=== PATIENT | male | born 1945 | race Caucasian/White ===

== ENCOUNTER → 2016-12-15 | Outpatient (CLI) | payer MEDICARE, BC ==
--- NOTE | 2016-12-15 13:17 | MRI ---
EXAM DESCRIPTION: MRI right knee CLINICAL HISTORY: Right knee pain COMPARISON: None. TECHNIQUE: Multiplanar, multisequence MR images of the right knee FINDINGS: Complex tear posterior horn and body medial meniscus. Complex tear involving both superior and inferior articular surfaces of the posterior horn and body with a primarily horizontal cleavage plane along the mid body extending from the periphery to the free edge. Subluxation of the body with fraying of both superior and inferior articular surfaces Full-thickness chondral loss along both sides of the femorotibial compartment with subchondral marrow edema and prominent joint line osteophytes Blunting and fraying of the free edge lateral meniscus at the posterior horn/body junction and posterior body. Lateral femorotibial chondrosis with chondral thinning and irregularity, grade 2 and grade 3 chondrosis posterior weightbearing joint High-grade chondral thinning diffusely over the patella. Grade 3 and grade 4 chondrosis along the patellar apex and a small region of the lateral patellar facet with small area of subchondral marrow edema. Grade 3 and grade 4 chondrosis along the trochlear apex and medial greater than lateral facet ACL, PCL, MCL and fibular collateral ligaments are intact Biceps femoris, popliteus and iliotibial band tendons are normal Patellar and quadriceps tendons and tendons of the posterior medial knee are intact. Small joint effusion and small Huber cyst. No intra-articular loose body IMPRESSION: Complex tear posterior horn and body medial meniscus. Severe medial femorotibial osteoarthritis Free edge fraying of the lateral meniscus. Lateral femorotibial and patellofemoral chondrosis/osteoarthritis Electronically signed by: James Mayo MD 12/15/2016 1:15 PM CDT
== END | disposition home or self-care (01) ==
LOC: MRI 07:41
PROVIDERS: ATTEND Family Medicine
DX: M17.11 Unilateral primary osteoarthritis, right knee (principal); M23.221 Derangement of posterior horn of medial meniscus due to old tear or injury, right knee

== ENCOUNTER → 2017-01-05 | Outpatient (CLI) | payer MEDICARE, BC ==
--- NOTE | 2017-01-05 10:08 | RAD ---
EXAM DESCRIPTION: Knee,Right Complete CLINICAL HISTORY: 71 years, Male, KNEE PAIN COMPARISON: FINDINGS: Four views obtained without fracture or dislocation. Medial joint compartment almost completely lost with spurring on both sides of the joint space. Moderate narrowing laterally. Patellofemoral joint space shows severe narrowing with spurring. Probable small joint effusion. IMPRESSION: No fracture or dislocation. Severe joint space narrowing medially and patellofemoral joint space. Electronically signed by: Jerald Potts MD 01/05/2017 10:08 AM CDT
--- NOTE | 2017-01-05 10:08 | RAD ---
EXAM DESCRIPTION: Pelvis CLINICAL HISTORY: 71 years, Male, RT HIP PAIN COMPARISON: FINDINGS: Pelvic ring is intact. Mild narrowing of both hips more on the right. Slight irregularity of the right lateral femoral head neck junction is a normal variant that can be associated with impingement syndrome. IMPRESSION: No fracture. Mild degenerative changes in both hips. Electronically signed by: Jerald Potts MD 01/05/2017 10:06 AM CDT
== END ==
LOC: RAD 10:00
PROVIDERS: ATTEND Orthopaedic Surgery
DX: M25.561 Pain in right knee (principal); M25.551 Pain in right hip

== ENCOUNTER → 2017-01-12 | Outpatient (CLI) | payer MEDICARE, BC | END | disposition home or self-care (01) | LOC: LAB.O 09:29 | PROVIDERS: ATTEND Orthopaedic Surgery | DX: Z01.818 Encounter for other preprocedural examination (principal) ==

== ENCOUNTER 2017-02-03 05:46 | Inpatient (IN) | payer MEDICARE, BC ==
--- NOTE | 2017-01-26 08:43 | HP ---
CHIEF COMPLAINT: Right knee pain. HISTORY OF PRESENT ILLNESS: Khurram is a 71-year-old male with a history of right knee pain that has been going on for years. It has been getting progressively worse and is at a point now where he is having pain that is limiting his daily activities. Because of the ongoing pain, he has requested operative intervention. After discussing the risks, benefits and alternatives to that, the patient has given informed consent. PAST SURGICAL HISTORY: 1. Kidney stone removal. MEDICATIONS: 1. Warfarin. 2. Levothyroxine. ALLERGIES: NO KNOWN DRUG ALLERGIES. CODE STATUS: Full code. IMMUNIZATIONS: Up to date. SOCIAL HISTORY: The patient does not drink, smoke or use any illicit drugs. FAMILY HISTORY: None pertinent to today's complaint. REVIEW OF SYSTEMS: Negative except as indicated in the History of Present Illness. PHYSICAL EXAMINATION: VITAL SIGNS: Blood pressure 153/113. Pulse 92. Height 6'. Weight 289. MENTAL STATUS: The patient is awake, alert, and is able to give a good history and participate in the physical. The patient is oriented to person, place and time. SKIN: Normal tone and turgor. HEENT: Normocephalic, atraumatic. Pupils equal, round and reactive. Mucosal membranes are moist. NECK: Normal range of motion. No thyromegaly, no lymphadenopathy. CHEST: Normal respiratory excursion. CARDIAC: Regular rate and rhythm. No murmurs, rubs or gallops. MUSCULOSKELETAL: The bilateral upper extremities show full active range of motion without significant tenderness. Sensation is intact in the extremities and they are warm and well perfused. He has no deformity. The left lower extremity shows full range of motion of the hip. He has full extension of the knee with flexion to about 115 degrees. He has no varus/valgus or anterior/ posterior laxity. Sensation is intact. There are no deformity. The right lower extremity shows full range of motion of the hip. Range of motion of the knee lacks about 5 degrees of extension and flexion is to about 105 degrees. Sensation is intact. There are no varus/valgus or anterior/posterior laxity. There is no deformity, no effusion. IMAGING: X-rays show severe arthritis of the knee. ASSESSMENT: 1. Osteoarthritis of the knee. PLAN: The plan at this point is for total knee arthroplasty. We have discussed the risks, benefits, and alternatives to that and the patient has given informed consent. [facility][id number] [facility]
[2017-02-03] MEDS ORDERED: TRANEXAMIC ACID 1,000 MG/10 ML VIAL ONE ×2 (05:48→05:50)
[2017-02-03] MEDS ORDERED: LACTATED RINGERS 1,000 ML ONE (05:48)
[2017-02-03] MEDS ORDERED: SODIUM CHL 0.9% 100ML MINI-BAG 100 ML IVPB ONE (05:48)
[2017-02-03] MEDS ORDERED: ceFAZolin SODIUM 1 GM VIAL ONE ×2 (05:49→06:26)
[2017-02-03] MEDS ORDERED: SODIUM CHLORIDE 0.9% 100ML 100 ML IVPB ONE (05:49)
[2017-02-03] MEDS ORDERED: VANCOMYCIN HCL INJ 1,000 MG VIAL IVPB ONE ×3 (05:49→18:21)
[2017-02-03] MEDS ORDERED: SODIUM CHLORIDE 0.9% 250ML 250 ML ONE ×2 (05:49→18:21)
[2017-02-03] MEDS ORDERED: MIDAZOLAM INJ 2 MG/2 ML VIAL ONE (06:38)
[2017-02-03] MEDS ORDERED: fentaNYL CITRATE INJ 50 MCG/ML AMP ONE (06:38)
[2017-02-03] MEDS ORDERED: ACETAMINOPHEN IV 1000MG 100 ML ONE (06:38)
[2017-02-03] MEDS ORDERED: MORPHINE SULFATE *EPIDURAL* 0.5 MG/ML VIAL ONE (06:38)
[2017-02-03] MEDS ORDERED: BUPIVACAINE 0.25% W/EPI 50 ML VIAL INJ ONE (06:40)
[2017-02-03] MEDS ORDERED: BENZOCAINE-MENTH LOZ (CEPACOL) 1 EA LOZ MT PRN (06:49)
[2017-02-03] MEDS ORDERED: HYDROcodone 5MG/APAP 325MG 1 EA TAB PO PRN (06:49)
[2017-02-03] MEDS ORDERED: MAGNESIUM HYDROXIDE 30 ML UD PO PRN (06:49)
[2017-02-03] MEDS ORDERED: ACETAMINOPHEN 325 MG TAB PO PRN (06:49)
[2017-02-03] MEDS ORDERED: PROMETHAZINE HCL INJ 25 MG in SODIUM CHLORIDE 0.9% 50ML 50 ML IVPB PRN (06:49)
[2017-02-03] MEDS ORDERED: TEMAZEPAM 15 MG CAP PO PRN (06:49)
[2017-02-03] MEDS ORDERED: ZOLPIDEM TARTRATE 5 MG TAB PO PRN (06:49)
[2017-02-03] MEDS ORDERED: MORPHINE SULFATE INJ 10 MG/ML VIAL IV PRN (06:49)
[2017-02-03] MEDS ORDERED: MORPHINE SULFATE INJ 10 MG/ML VIAL IM PRN (06:49)
[2017-02-03] MEDS ORDERED: ALUMINUM & MAGNESIUM HYDROXIDE 30 ML UD PO PRN (06:49)
[2017-02-03] MEDS ORDERED: PROMETHAZINE HCL INJ 12.5 MG in SODIUM CHLORIDE 0.9% 50ML 50 ML IVPB PRN (06:49)
[2017-02-03] MEDS ORDERED: ACETAMINOPHEN 500 MG TAB PO PRN (06:49)
[2017-02-03] MEDS ORDERED: DEX 5% W/NACL 0.45% 1000ML 1,000 ML IVS PRN (06:49)
[2017-02-03] MEDS ORDERED: CYCLOBENZAPRINE HCL 10 MG TAB PO PRN (06:49)
[2017-02-03] MEDS ORDERED: ONDANSETRON INJ 4 MG/2 ML VIAL IV PRN (06:49)
[2017-02-03] MEDS ORDERED: BISACODYL SUPPOSITORY 10 MG PR PRN (06:49)
[2017-02-03] MEDS ORDERED: SODIUM CHLORIDE 0.9% (FLUSH) 10 ML SYG IV PRN (06:49)
[2017-02-03] MEDS ORDERED: NALOXONE HCL INJ 0.4 MG/ML VIAL IV PRN (06:49)
[2017-02-03] MEDS ORDERED: TRANEXAMIC ACID INJ 1,000 MG in SODIUM CHLORIDE 0.9% 100ML 100 ML IVPB ONE (06:49)
[2017-02-03] MEDS ORDERED: MORPHINE PCA 1 MG/ML 100ML 1 BAG in PREMIX BAG 1 BAG IVPB SCH (07:00)
[2017-02-03] MEDS ORDERED: ROCURONIUM BROMIDE 10 MG/ML VIAL ONE (07:06)
[2017-02-03] MEDS ORDERED: MAGNESIUM OXIDE 400 MG TAB PO SCH (09:00)
[2017-02-03] MEDS ORDERED: MORPHINE PCA 1 MG/ML 100 ML BAG IVPB ONE ×2 (09:39→09:50)
[2017-02-03] MEDS ORDERED: DEXAMETHASONE INJ 10 MG/ML VIAL IV ONE (12:00)
[2017-02-03] MEDS ORDERED: LIDOCAINE 1% 10 ML VIAL INJ ONE (12:00)
[2017-02-03] MEDS ORDERED: raNITIdine HCL INJ 25 MG/ML VIAL IV ONE (12:00)
[2017-02-03] MEDS ORDERED: METOCLOPRAMIDE HCL INJ 10 MG/2 ML VIAL IV ONE (12:00)
[2017-02-03] MEDS ORDERED: PROPOFOL 200 MG/20 ML VIAL IV ONE (12:00)
[2017-02-03] MEDS ORDERED: ePHEDrine SULF 50 MG/ML IV ONE (12:00)
[2017-02-03] MEDS ORDERED: METOPROLOL TARTRATE 25 MG TAB PO ONE (13:26)
[2017-02-03] MEDS ORDERED: METOPROLOL TARTRATE 25 MG TAB ONE (13:26)
[2017-02-03] MEDS: CEFAZOLIN SODIUM 2 GRAMS IV 2 GM in PREMIX BAG 1 BAG IVPB SCH (17:00)
[2017-02-03] MEDS: IV SET AND CAP CHANGE INJ INJ SCH (17:08)
[2017-02-03] MEDS: CELECOXIB 100 MG CAP PO SCH ×2 (17:09→17:15)
[2017-02-03] MEDS ORDERED: CEFAZOLIN SODIUM 2 GRAMS IV 50 ML IVPB ONE ×2 (17:10→19:58)
[2017-02-03] MEDS: METOPROLOL TARTRATE 25 MG TAB PO SCH (17:15)
[2017-02-03] MEDS ORDERED: diphenhydrAMINE HCL 50 MG/ML VIAL IV PRN (18:31)
[2017-02-03] MEDS: VANCOMYCIN HCL INJ 1,000 MG in SODIUM CHLORIDE 0.9% 250ML 250 ML IVPB SCH (18:41)
--- NOTE | 2017-02-03 19:02 | CONS ---
DATE OF CONSULTATION: 02/03/17 SUPERVISING PHYSICIAN: James Dennison M.D. CHIEF COMPLAINT: Right knee pain. HISTORY OF PRESENT ILLNESS: This is a 71 year-old male patient with a history of right knee pain that has been going on for years. It has progressively worsened. He is at the point now where the pain is limiting his daily activities. He requested operative intervention per Dr. Jorge Donohue, orthopedic surgeon. Today, he had a right total knee arthroplasty and I am seeing him postoperatively. PAST MEDICAL HISTORY: 1. Atrial fibrillation. 2. Hypothyroidism. 3. Right knee pain. 4. Low back pain. 5. Gout. 6. Kidney stones. PAST SURGICAL HISTORY: 1. Kidney stone removal. 2. Tonsillectomy as a child. OUTPATIENT MEDICATIONS: Per the EMR and awaiting verification. ALLERGIES: NO KNOWN DRUG ALLERGIES. 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 He has 3 children. He denies any tobacco use. He drinks alcoholic beverages very rarely. He denies any illicit drug use. REVIEW OF SYSTEMS: Negative except for the History of Present Illness. PHYSICAL EXAMINATION: VITAL SIGNS: He is afebrile. Heart rate 98, it has varied between 70 and 116 [id number]. Blood pressure 153/87, respiratory rate 20, O2 sat is 94% on room air. GENERAL: This is a 71 year-old male patient who is lying in his hospital bed. He is in no acute distress. HEENT: Normocephalic and atraumatic. Pupils are equal and reactive. Oropharynx is clear. Oral mucous membranes are slightly dry. NECK: Supple without mass. CHEST: Clear to auscultation bilaterally. There is equal rise and fall of the chest with inspiration and expiration. HEART: Irregular rhythm, regular rate, although he does get slightly tachycardic at times. Atrial fibrillation on the heel dipper. ABDOMEN: Soft, nondistended, non-tender. Bowel sounds are positive. EXTREMITIES: Bilateral pedal pulses. He has an Iceman in place to his right knee. NEUROLOGIC: He is awake, alert and oriented times three. LABORATORY: PT 11.7, INR 1.04, PTT 29.8. Chemistry this morning has a glucose as low as 97 and as high as 139. All other labs and films have been reviewed via the EMR. IMPRESSION: 1. Osteoarthritis of the right knee status post total knee arthroplasty per Dr. Jorge Donohue, orthopedic surgeon. Postoperative day zero. 2. Atrial fibrillation. 3. Gout. 4. Hypothyroidism. PLAN: We will continue present supportive care. I have restarted his home medications with the exception of his Coumadin which we will hold for now as he is on anticoagulation therapy postoperatively. His heart rate was somewhat irregular and went up into the 110s today, so I have added a low dose of Metoprolol tartrate. I have also ordered Benadryl for itching. Otherwise orthopedic issues will be per Dr. Donohue. He will start his physical therapy tomorrow. We will continue to monitor the patient closely and follow as needed. Dr. Dennison is the collaborating physician available for consultation. #[id number] [facility]
[2017-02-03] MEDS ORDERED: DOCUSATE CALCIUM 240 MG CAP ONE (19:58)
[2017-02-03] MEDS ORDERED: ENOXAPARIN SODIUM 30 MG/0.3 ML SYG SUBCU ONE (19:58)
[2017-02-03] MEDS ORDERED: ALLOPURINOL 300 MG TAB PO ONE (19:59)
[2017-02-03] MEDS: ALLOPURINOL 300 MG TAB PO SCH (20:10)
[2017-02-03] MEDS: DOCUSATE CALCIUM 240 MG CAP PO SCH (20:10)
[2017-02-03] MEDS: ENOXAPARIN SODIUM 30 MG/0.3 ML SYG SUBCU SCH (21:58)
[2017-02-04] MEDS: CEFAZOLIN SODIUM 2 GRAMS IV 2 GM in PREMIX BAG 1 BAG IVPB SCH ×2 (00:09→08:02)
[2017-02-04] MEDS ORDERED: SODIUM CHLORIDE 0.9% 250ML 250 ML ONE (00:33)
[2017-02-04] MEDS ORDERED: LEVOTHYROXINE SODIUM 0.025 MG TAB ONE (00:33)
[2017-02-04] MEDS ORDERED: VANCOMYCIN HCL INJ 1,000 MG VIAL IVPB ONE (00:34)
--- NOTE | 2017-02-04 05:47 | RAD ---
Procedure: XR KNEE 1-2 VIEWS Exam Date: 02/03/2017 6:51 AM CDT Ordering Provider: KATHY WATSON Clinical Indication: TKA Comparison: 01/05/2017 Findings: Status post total knee arthroplasty. Expected postoperative gas noted. No fractures or subluxations. No lytic or sclerotic lesions identified. Impression: Status post right knee arthroplasty without complication. Electronically signed by: Aryan Marie MD 02/04/2017 5:46 AM CDT
[2017-02-04] MEDS: VANCOMYCIN HCL INJ 1,000 MG in SODIUM CHLORIDE 0.9% 250ML 250 ML IVPB SCH (05:57)
[2017-02-04] MEDS: LEVOTHYROXINE SODIUM 0.025 MG TAB PO SCH (06:05)
[2017-02-04] MEDS ORDERED: CEFAZOLIN SODIUM 2 GRAMS IV 50 ML IVPB ONE (07:55)
[2017-02-04] MEDS ORDERED: MAGNESIUM OXIDE 400 MG TAB ONE (07:56)
[2017-02-04] MEDS: MAGNESIUM OXIDE 400 MG TAB PO SCH (08:05)
[2017-02-04] MEDS: METOPROLOL TARTRATE 25 MG TAB PO SCH ×2 (08:05→17:02)
[2017-02-04] MEDS: CELECOXIB 100 MG CAP PO SCH ×2 (08:05→17:02)
--- NOTE | 2017-02-04 08:30 | PN ---
DATE: 02/03/17 POSTOPERATIVE CHECK SUBJECTIVE: He is doing well and he is awake. He is comfortable at this time. OBJECTIVE: Afebrile. Vital signs stable. Dressing is clean, dry and intact. ASSESSMENT: Status post total knee arthroplasty. PLAN: We will continue to increase his CPM as tolerated and begin weight- bearing as tolerated on postoperative day 1. [facility][id number] [facility]
--- NOTE | 2017-02-04 08:48 | OP ---
DATE OF PROCEDURE: 02/03/17 PREOPERATIVE DIAGNOSIS: 1. Osteoarthritis of the knee. POSTOPERATIVE DIAGNOSIS: 1. Osteoarthritis of the knee. PROCEDURE: 1. Total knee arthroplasty. SURGEON: Jorge Donohue MD. HAND DRY CLEANER: Jermain Whitehead CST, SA-C. ANESTHESIA: General. COMPLICATIONS: None. FINDINGS: Severe osteoarthritis with varus deformity. INDICATION: Mr. Pena has a history of severe knee pain that has been getting progressively worse. Because of his failure of conservative measures, he has requested operative intervention. After discussing the risks, benefits and alternatives to that, the patient has given informed consent for total knee arthroplasty. PROCEDURE: The patient was brought to the Operating Room and placed in supine position. General anesthesia was induced and the patient's leg was sterilely prepped and draped. Following prepping and draping, the distal femur was exposed and using an intramedullary guide, the distal femoral cut was made. The appropriate sized cutting block was measured, pinned into place, and the anterior, posterior, and chamfer cuts were made. The ACL was transected and the tibia was subluxed. Both the medial and lateral menisci were removed. An intramedullary guide was used to make the proximal tibial cut. The appropriate sized base plate was placed and a trial polyethylene was placed. The trial femur was placed, the knee was reduced, and the knee was taken through a range of motion. The knee was stable in anterior, posterior, varus and valgus stress. The patella tracked anatomically without evidence of subluxation or dislocation. After trialing, the trial components were removed and the bony surfaces were thoroughly irrigated with saline. Following irrigation, the surfaces were dried and the final components were cemented into place. The excess cement was removed and the remaining cement was allowed to cure. The knee was again taken through a range of motion to confirm stability. The wound was then irrigated with saline and closure was performed using PDS to approximate the arthrotomy followed by closure of the subcutaneous tissues with a combination of running and interrupted Monocryl sutures. Sterile dressing was placed. The patient was awoken from anesthesia and taken to Recovery. POSTOPERATIVE INSTRUCTIONS: The patient will be weight-bearing as tolerated on postoperative day 1. COMPONENTS: [employer] Triathlon knee, size 7 femur, size 7 tibia, 9 mm insert. #[id number] [facility]
[2017-02-04] MEDS: ENOXAPARIN SODIUM 30 MG/0.3 ML SYG SUBCU SCH ×2 (10:40→21:56)
--- NOTE | 2017-02-04 11:58 | PN ---
SUPERVISING PHYSICIAN: James Dennison MD DATE: 02/04/17 SUBJECTIVE: The patient is sitting up in his chair in his hospital room. He has no complaints of nausea, vomiting, diarrhea, constipation. He complains of limited sleep last night, but otherwise no other complaints. OBJECTIVE: VITAL SIGNS: Afebrile. Heart rate 76. Blood pressure 112/67. Respiratory rate 20. O2 saturation 93% on 1 liter nasal cannula. LUNGS: Clear to auscultation bilaterally. CARDIAC: Irregular rhythm, regular rate. Atrial fibrillation on the field appraiser. ABDOMEN: Soft, nondistended, nontender. Bowel sounds are positive. EXTREMITIES: He has an Iceman in place to his right knee. Bilateral pedal pulses are palpable at +2 and he has minimal edema to the right lower leg. NEUROLOGIC: Awake, alert and oriented times three. LABORATORY: Hemoglobin 14.5, hematocrit 43.2. All other labs and films have been reviewed via the EMR. ASSESSMENT: 1. Osteoarthritis of the right knee status post total knee arthroplasty per Dr. Jorge Donohue, orthopedic surgeon, postoperative day 1. 2. Atrial fibrillation. 3. Gout. 4. Hypothyroidism. PLAN: We will continue present supportive care. Physical therapy will continue for strengthening and conditioning. Orthopedic issues will be per Dr. Jorge Donohue. We anticipate the patient will be discharged from the Acute Care setting and will require about 10 days of Swing Bed admission. The metoprolol has controlled his rate quite nicely and we will need to continue that after discharge. I have encouraged good pulmonary hygiene. We will continue to monitor the patient closely and follow as needed. . Dr. Dennison is the collaborating physician and available for consultation. #[id number] [facility]
[2017-02-04] MEDS: ALLOPURINOL 300 MG TAB PO SCH (20:21)
[2017-02-04] MEDS: DOCUSATE CALCIUM 240 MG CAP PO SCH (20:21)
[2017-02-05] MEDS: LEVOTHYROXINE SODIUM 0.025 MG TAB PO SCH (06:22)
[2017-02-05] MEDS: traMADol HCL 50 MG TAB PO PRN ×2 (06:51→21:01)
--- NOTE | 2017-02-05 07:56 | PN ---
DATE: 02/04/17 SUBJECTIVE: Mr. Pena is doing pretty well and says he has had minimal pain. OBJECTIVE: Afebrile. Vital signs stable. Dressing is clean, dry and intact. ASSESSMENT: Status post total knee arthroplasty. PLAN: He will continue with his weight-bearing as tolerated status and continue CPM and advance as tolerated. #[id number] [facility]
[2017-02-05] MEDS: CELECOXIB 100 MG CAP PO SCH ×2 (07:59→16:36)
[2017-02-05] MEDS: METOPROLOL TARTRATE 25 MG TAB PO SCH ×2 (07:59→17:29)
[2017-02-05] MEDS: MAGNESIUM OXIDE 400 MG TAB PO SCH (07:59)
[2017-02-05] MEDS: SODIUM CHLORIDE 0.9% (FLUSH) 10 ML SYG IV SCH ×2 (08:00→21:04)
--- NOTE | 2017-02-05 08:00 | PN ---
DATE: 02/05/17 SUBJECTIVE: He is doing pretty well. He has a little bit more pain today than yesterday. OBJECTIVE: Afebrile. Vital signs stable. Wound is clean. There are no signs or symptoms of infection. ASSESSMENT: Status post total knee arthroplasty. PLAN: He will continue with weight-bearing and CPM. We have encouraged appropriate use of pain medicine on a p.r.n. basis. #[id number] [facility]
[2017-02-05] MEDS: ENOXAPARIN SODIUM 30 MG/0.3 ML SYG SUBCU SCH ×2 (09:05→21:37)
--- NOTE | 2017-02-05 15:19 | PN ---
DATE: 02/05/17 SUPERVISING PHYSICIAN: James Dennison M.D. SUBJECTIVE: The patient is sitting in the chair. He says his pain has been well controlled. He has had no constipation or any other complaints. Discussed going to Swing Bed tomorrow and he mentioned that he has well over 28 steps to climb to get into his house. OBJECTIVE: VITAL SIGNS: He remains afebrile, temperature 98.3, pulse 83, blood pressure 113/75, respirations 16, satting 97% on room air. I's and O's are negative with 510 balance with 540 in, 1050 out. Weight is 132.0 kg. CHEST: Lungs are clear to auscultation bilaterally. HEART: Regular rate and rhythm with a systolic murmur heard. ABDOMEN: Obese but soft, non-tender. Positive bowel sounds. EXTREMITIES: No clubbing, cyanosis or edema. Right knee has a dressing in place which is clean and dry, minimal swelling. No erythema. No signs of infection. Pulses distally are strong, capillary refill is brisk. LABORATORY: Postoperative H&H was 14.5, hematocrit 43.2. ASSESSMENT: 1. Osteoarthritis of the right knee status post knee arthroplasty performed by Dr. Jorge Donohue, orthopedic surgeon. Postoperative day 2. 2. Atrial fibrillation with controlled ventricular rate with the patient having been previously on Coumadin. 3. Gout. 4. Hypothyroidism. PLAN: Will continue to follow the patient as he progresses through his physical therapy. Will anticipate going to Swing Bed tomorrow for at least 8 to 10 days. Again, it was noted that he has greater than 20 stairs to climb in efforts to get to his house. He was started on Metoprolol and has had good rate control which will be continued through discharge. He is again encouraged to have good pulmonary hygiene. Will anticipate discharging tomorrow. Today, will continue to monitor and treat appropriately. #[id number] [facility]
[2017-02-05] MEDS: ALLOPURINOL 300 MG TAB PO SCH (21:01)
[2017-02-05] MEDS: DOCUSATE CALCIUM 240 MG CAP PO SCH (21:01)
[2017-02-06] MEDS: LEVOTHYROXINE SODIUM 0.025 MG TAB PO SCH (06:14)
[2017-02-06] MEDS: METOPROLOL TARTRATE 25 MG TAB PO SCH (08:08)
[2017-02-06] MEDS: MAGNESIUM OXIDE 400 MG TAB PO SCH (08:08)
[2017-02-06] MEDS: CELECOXIB 100 MG CAP PO SCH (08:08)
[2017-02-06] MEDS: traMADol HCL 50 MG TAB PO PRN (08:08)
[2017-02-06] MEDS: ENOXAPARIN SODIUM 30 MG/0.3 ML SYG SUBCU SCH (10:50)
[2017-02-06] MEDS: SODIUM CHLORIDE 0.9% (FLUSH) 10 ML SYG IV SCH (10:51)
[2017-02-06] MEDS: IV SET AND CAP CHANGE INJ INJ SCH (11:45)
[2017-02-06 12:30] VITALS: BP 121/73; TEMP 96.9
[2017-02-06 14:19] VITALS: O2SAT 96
[2017-02-06] MEDS ORDERED: BISACODYL SUPPOSITORY 10 MG PR ONE (21:00)
[2017-02-06] MEDS ORDERED: MAGNESIUM HYDROXIDE 30 ML UD PO ONE (21:00)
--- NOTE | 2017-02-07 12:30 | DS ---
DISCHARGE DIAGNOSES: 1. Osteoarthritis of the right knee status post total knee arthroplasty being performed by Dr. Jorge Donohue, postoperative day #3 requiring admission to Swing Bed for ongoing physical therapy. 2. Atrial fibrillation with a controlled ventricular rate.with patient previously on Coumadin. 3. Gout. 4. Hypothyroidism on supplementation. HISTORY OF PRESENT ILLNESS: Mr. Pena is a 71 year-old male patient with a history of right knee pain that had been going on for years and had progressively worsened to the point where the pain was limiting his daily activities. He had tried multiple outpatient conservative measures which had failed. Thus, he requested operative intervention by Dr. Jorge Donohue, orthopedic surgeon. He had a right total knee arthroplasty performed on date of admission and was followed postoperatively. He did continue to have good improvement in his physical therapy efforts and good pain control, however, he does have to transverse well over 28 steps into his home. Therefore. he will benefit from admission to Swing Bed to assure his safety and continued physical therapy efforts prior to discharge. LABORATORY: Postoperative laboratory of hemoglobin 14.4, hematocrit 43.5. Coagulations preoperatively showed PT of 11.7, PTT 29.8. Blood sugars preoperatively were 97 and postoperative 139. Urinalysis showed a trace of intact blood, otherwise within normal limits. RADIOLOGY: No additional radiographic studies were performed. MICROBIOLOGY: No specimens were submitted. HOSPITAL COURSE: Mr. Pena was admitted on 02/03/17 for elective right total knee arthroplasty performed by Dr. Jorge Donohue. The patient was seen immediately in the postoperative state and continued to show good improvement, had good pain control and was tolerating diet. He remained on Lovenox through admission to be transitioned back to Coumadin once discharged to Swing Bed. It was felt on the morning of discharge from Acute Care to Swing Bed, the patient was progressing well, however, he does live at home where he has well over 28 steps to traverse to go in and out of his house. Therefore, it was felt that continued physical therapy would be beneficial to him and insure his safety once discharged home. PLAN: Mr. Pena was discharged on 02/06/17 from Acute Care and admitted to Swing Bed for ongoing physical therapy efforts. Home medications are resumed as previous including Warfarin which will be started tomorrow night after a PT is drawn tomorrow morning. He will remain on Lovenox for at least 5 days until he is therapeutic for at least 24 hours once on Warfarin, after which we will stop his Lovenox. Diet is regular as tolerated. Activity is as per physical therapy. Wound care is as per Dr. Donohue's postoperative orders. No new prescriptions were provided for Acute Care. All medications plus additional medications will be continued on Swing Bed admission. CONDITION ON DISCHARGE TO SWING BED: Stable and improved. #[id number] [facility]
== END 2017-02-06 13:05 | disposition swing bed (61) | DRG 470 ==
LOC: AMB 05:46 → MS 10:40
PROVIDERS: ADMIT Orthopaedic Surgery; ATTEND Nurse Practitioner Family
PROC: 0SRC0J9 Replacement of Right Knee Joint with Synthetic Substitute, Cemented, Open Approach (ICD-10-PCS; principal; 2017-02-03 07:00)
DX: M17.11 Unilateral primary osteoarthritis, right knee (principal); I48.91 Unspecified atrial fibrillation; M10.9 Gout, unspecified; E03.9 Hypothyroidism, unspecified; M54.5 Low back pain; Z79.899 Other long term (current) drug therapy; Z79.01 Long term (current) use of anticoagulants

== ENCOUNTER 2017-02-06 13:20 | Inpatient (IN) | payer MEDICARE, BC ==
--- NOTE | 2017-02-06 13:23 | HP ---
SUPERVISING PHYSICIAN: James Dennison M.D. REASON FOR ADMISSION: Strengthening and rehabilitation status post right total knee arthroplasty, postoperative day 3. HISTORY OF PRESENT ILLNESS: Mr. Pena is a 71 year-old male patient that was admitted on 02/03/17 for a right total knee arthroplasty. He has a longstanding history of right knee pain that has progressively worsened. He has failed multiple treatments and conservative measures in the outpatient setting. The pain had begun to significantly limit his daily activities and he requested operative intervention to be performed by Dr. Jorge Donohue, orthopedic surgeon. He had a right total knee arthroplasty performed on 02/03/17 and had no complications. He was progressing well through his physical therapy, however he does have a significant amount of steps, well over 28 steps to go into his house, therefore it was felt that he would benefit from Swing Bed admission for ongoing therapy and physical rehabilitation to ensure his safety once discharged. The patient was admitted to Swing Bed in stable condition. PAST MEDICAL HISTORY: 1. Atrial fibrillation previously on Warfarin. 2. Hypothyroidism on supplementation. 3. Right knee pain with current surgery as noted above with right total knee arthroplasty. 4. Lower back pain. 5. Gout. 6. Kidney stones. PAST SURGICAL HISTORY: 1. As noted above, recent right total knee arthroplasty. 2. Kidney stone removal. 3. Tonsillectomy. OUTPATIENT MEDICATIONS: 1. Warfarin 5 mg daily. 2. Lopressor 25 mg twice daily. 3. Synthroid 0.025 mg daily. 4. Flexeril 10 mg every 8 hours p.r.n. 5. Allopurinol 300 mg at bedtime. ALLERGIES: NO KNOWN DRUG ALLERGIES. FAMILY HISTORY: Unremarkable. 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 He denies any tobacco use. He drinks alcohol very rarely. Denies any illicit drug use. REVIEW OF SYSTEMS: Negative except for as noted in History of Present Illness. PHYSICAL EXAMINATION: VITAL SIGNS: Temperature 97.1, pulse 94, blood pressure 135/78, respirations 18 , satting 94% on room air. GENERAL: The patient is resting comfortably, appears to be in no acute distress. He is alert and oriented. HEENT: Tympanic membrane are clear bilaterally. Oropharynx is pink and moist without any lesions. NECK: Supple, non-tender with full range of motion. No jugular venous distention. CHEST: Lungs are clear to auscultation bilaterally, just slightly diminished towards the bases with no rhonchi, wheezing or rales noted. CARDIOVASCULAR: Slightly irregular rate and rhythm with no appreciable murmurs , gallops, or rubs. Atrial fibrillation is noted on past EKGs. ABDOMEN: Soft but obese, nondistended with positive bowel sounds, non-tender. EXTREMITIES: Right knee has a surgical dressing in place that is clean and dry. There is minimal edema. There is no redness. No signs of infection. Pulses distally are strong with capillary refill brisk. NEUROLOGIC: He is alert and oriented times three. LABORATORY: CBC, CMP and coagulation studies are pending. ASSESSMENT: 1. Osteoarthritis of the right knee status post total knee arthroplasty being performed by Dr. Jorge Donohue on 02/03/17, postoperative day 3 admitted to Swing Bed for continuation of rehabilitation and continued physical therapy. 2. Atrial fibrillation previously on Coumadin with a controlled ventricular rate. 3. Gout. 4. Hypothyroidism on supplementation. PLAN: The patient will be admitted to Swing Bed for ongoing physical therapy. It is noted that he has well over 28 steps to go in and out of his house, therefore additional days in Swing Bed for continued rehabilitation aggressively is warranted to ensure his safety once discharged. He was previously on Coumadin 5 mg daily. Given that his Xarelto dose for postoperative DVT coverage is not adequate enough to cover given atrial fibrillation, will plan to resume his Warfarin tomorrow once we draw coagulation levels. Anticipate at least 5 days to continue his Lovenox until he becomes therapeutic on his INR at least for 24 hours at which time will stop his Lovenox and continue with Warfarin. Will resume his home medications once those have been updated and verified. Will anticipate at least a 10 day stay, possibly less depending on how he meets his goals in regards to his physical therapy. Until discharge, will continue to monitor and treat appropriately. [facility][id number] [facility]
[2017-02-06] MEDS ORDERED: MAGNESIUM HYDROXIDE 30 ML UD PO PRN (13:34)
[2017-02-06] MEDS ORDERED: HYDROcodone 5MG/APAP 325MG 1 EA TAB PO PRN (13:34)
[2017-02-06] MEDS ORDERED: SODIUM PHOS/BIPHOS ENEMA ADULT 133 ML BTTL PR PRN (13:34)
[2017-02-06] MEDS ORDERED: TEMAZEPAM 15 MG CAP PO PRN (13:34)
--- NOTE | 2017-02-06 13:38 | PCM.CORE ---
Physician DVT/VTE - Prophylaxis Currently: Patient already on anticoagulation therapy - Nurse DVT Assessment & Total Each Risk Factor Represents 5 Points: Elective Arthtroplasty Each Risk Factor Represents 2 Points: Age 60-74, Major Surgery >45 minutes Each Risk Factor is 1 Point: Obesity (BMI >25) DVT Assessment Score: 10 - 5 or more Very High Risk Treatments: Early Ambulation *, Sequential Compression Device Pharmacological: Warfarin daily
[2017-02-06] MEDS ORDERED: ENOXAPARIN SODIUM 30 MG/0.3 ML SYG SUBCU SCH ×2 (14:00→15:30)
[2017-02-06] MEDS: traMADol HCL 50 MG TAB PO PRN (15:31)
[2017-02-06] MEDS: METOPROLOL TARTRATE 25 MG TAB PO SCH (17:55)
[2017-02-06] MEDS ORDERED: ENOXAPARIN SODIUM 30 MG/0.3 ML SYG SUBCU ONE (19:44)
[2017-02-06] MEDS ORDERED: ALLOPURINOL 300 MG TAB PO ONE (19:44)
[2017-02-06] MEDS ORDERED: WARFARIN SODIUM 5 MG TAB ONE (19:44)
[2017-02-06] MEDS: ALLOPURINOL 300 MG TAB PO SCH (20:34)
[2017-02-06] MEDS: WARFARIN SODIUM 5 MG TAB PO SCH (20:34)
[2017-02-06] MEDS: ENOXAPARIN SODIUM 30 MG/0.3 ML SYG SUBCU SCH (22:09)
[2017-02-07] MEDS ORDERED: LEVOTHYROXINE SODIUM 0.025 MG TAB ONE (05:30)
[2017-02-07] MEDS: LEVOTHYROXINE SODIUM 0.025 MG TAB PO SCH (06:37)
[2017-02-07] MEDS: METOPROLOL TARTRATE 25 MG TAB PO SCH ×2 (07:59→16:53)
[2017-02-07] MEDS: DOCUSATE SODIUM 100 MG CAP PO SCH (08:05)
[2017-02-07] MEDS: ENOXAPARIN SODIUM 30 MG/0.3 ML SYG SUBCU SCH ×2 (11:11→21:43)
--- NOTE | 2017-02-07 12:43 | PN ---
DATE: 02/06/17 SUBJECTIVE: He is subjectively doing well. His CPM is going at about 90 degrees. OBJECTIVE: He is afebrile. Vital signs are stable. Wound is clean. There are no signs or symptoms of infection. ASSESSMENT: 1. Status post total knee arthroplasty. PLAN: The plan at this point is to continue on with therapy with increasing CPM and weightbearing as tolerated. [facility][id number] [facility]
--- NOTE | 2017-02-07 12:51 | PN ---
DATE: 02/07/17 SUBJECTIVE: Mr. Pena seems to be improving. He is on the CPM greater than 90 degrees today and he has been up several times already. OBJECTIVE: He is afebrile. Vital signs are stable. Wound is clean. There are no signs or symptoms of infection. ASSESSMENT: 1. Status post total knee arthroplasty. PLAN: Mr. Pena is on Swing Bed at this time. He is going to continue on with his therapy and he will need pretty extensive training on stairs as he does have about 20 stairs at home. He will be discharged when he meets his goals. #[id number] [facility]
[2017-02-07] MEDS: traMADol HCL 50 MG TAB PO PRN ×2 (13:01→20:11)
[2017-02-07] MEDS: ALLOPURINOL 300 MG TAB PO SCH (20:11)
[2017-02-07] MEDS: WARFARIN SODIUM 5 MG TAB PO SCH ×2 (20:11→21:30)
[2017-02-08] MEDS: traMADol HCL 50 MG TAB PO PRN ×3 (05:48→20:34)
[2017-02-08] MEDS: LEVOTHYROXINE SODIUM 0.025 MG TAB PO SCH (06:35)
[2017-02-08] MEDS: METOPROLOL TARTRATE 25 MG TAB PO SCH ×2 (07:34→16:55)
[2017-02-08] MEDS: CYCLOBENZAPRINE HCL 10 MG TAB PO PRN (08:14)
[2017-02-08] MEDS: DOCUSATE SODIUM 100 MG CAP PO SCH (08:14)
[2017-02-08] MEDS: ENOXAPARIN SODIUM 30 MG/0.3 ML SYG SUBCU SCH ×2 (10:47→22:25)
[2017-02-08] MEDS: ALLOPURINOL 300 MG TAB PO SCH (20:34)
[2017-02-08] MEDS: WARFARIN SODIUM 5 MG TAB PO SCH (20:34)
[2017-02-09] MEDS: traMADol HCL 50 MG TAB PO PRN ×2 (06:21→13:35)
[2017-02-09] MEDS: LEVOTHYROXINE SODIUM 0.025 MG TAB PO SCH (06:30)
--- NOTE | 2017-02-09 07:36 | PN ---
DATE: 02/09/17 SUBJECTIVE: Mr. Pena is doing pretty well. He is up in a chair already. OBJECTIVE: Afebrile. Vital signs stable. Wound is clean. There are no signs or symptoms of infection. ASSESSMENT: Status post total knee arthroplasty. PLAN: He will continue with his weight-bearing as tolerated status. We are going to continue to follow him and continue to increase his CPM as tolerated. #[id number] [facility]
[2017-02-09] MEDS: METOPROLOL TARTRATE 25 MG TAB PO SCH ×2 (07:51→16:55)
[2017-02-09] MEDS: ACETAMINOPHEN 500 MG TAB PO PRN ×2 (07:56→17:14)
[2017-02-09] MEDS: DOCUSATE SODIUM 100 MG CAP PO SCH (09:01)
[2017-02-09] MEDS: ENOXAPARIN SODIUM 30 MG/0.3 ML SYG SUBCU SCH ×2 (09:37→21:41)
[2017-02-09] MEDS: ALLOPURINOL 300 MG TAB PO SCH (21:41)
[2017-02-09] MEDS: WARFARIN SODIUM 5 MG TAB PO SCH (21:41)
[2017-02-10] MEDS: traMADol HCL 50 MG TAB PO PRN ×2 (06:26→20:52)
[2017-02-10] MEDS: LEVOTHYROXINE SODIUM 0.025 MG TAB PO SCH (06:30)
[2017-02-10] MEDS: DOCUSATE SODIUM 100 MG CAP PO SCH (08:12)
[2017-02-10] MEDS: METOPROLOL TARTRATE 25 MG TAB PO SCH ×2 (08:12→17:11)
[2017-02-10] MEDS: CYCLOBENZAPRINE HCL 10 MG TAB PO PRN (08:14)
[2017-02-10] MEDS: ENOXAPARIN SODIUM 30 MG/0.3 ML SYG SUBCU SCH ×2 (10:49→22:00)
[2017-02-10] MEDS: ACETAMINOPHEN 500 MG TAB PO PRN (13:05)
[2017-02-10] MEDS: WARFARIN SODIUM 5 MG TAB PO SCH (20:53)
[2017-02-10] MEDS: ALLOPURINOL 300 MG TAB PO SCH (20:53)
[2017-02-11] MEDS: CYCLOBENZAPRINE HCL 10 MG TAB PO PRN (06:01)
[2017-02-11] MEDS: LEVOTHYROXINE SODIUM 0.025 MG TAB PO SCH (06:44)
[2017-02-11] MEDS: METOPROLOL TARTRATE 25 MG TAB PO SCH ×2 (08:09→16:39)
[2017-02-11] MEDS: DOCUSATE SODIUM 100 MG CAP PO SCH (08:09)
--- NOTE | 2017-02-11 08:29 | PN ---
DATE: 02/10/17 SUBJECTIVE: Mr. Pena seems like he is doing really well. He is up to a chair at this time and is able to do transfers and ambulation independently. OBJECTIVE: Afebrile. Vital signs stable. Wound is clean. There are no signs or symptoms of infection. ASSESSMENT: Status post total knee arthroplasty. PLAN: He will continue with physical therapy. He does have quite a few stairs at home and that is really what we are trying to work on as far as safety reasons. Hopefully, we will have that in the next few days. [facility][id number] [facility]
[2017-02-11] MEDS: ENOXAPARIN SODIUM 30 MG/0.3 ML SYG SUBCU SCH ×2 (13:51→22:21)
[2017-02-11] MEDS: ALLOPURINOL 300 MG TAB PO SCH (20:59)
[2017-02-11] MEDS: traMADol HCL 50 MG TAB PO PRN (20:59)
[2017-02-11] MEDS: WARFARIN SODIUM 5 MG TAB PO SCH (20:59)
[2017-02-12] MEDS: LEVOTHYROXINE SODIUM 0.025 MG TAB PO SCH (06:52)
[2017-02-12] MEDS: METOPROLOL TARTRATE 25 MG TAB PO SCH (08:35)
[2017-02-12] MEDS: DOCUSATE SODIUM 100 MG CAP PO SCH (08:37)
[2017-02-12] MEDS: CYCLOBENZAPRINE HCL 10 MG TAB PO PRN (08:48)
--- NOTE | 2017-02-12 09:19 | PN ---
DATE: 02/12/17 Mr. Pena is doing really well and he is mobilizing independently. He is having no problems getting in and out of bed. At this point, he feels comfortable maneuvering stairs and I think he is also ready to be discharged. We are going to discharge him and set up outpatient physical therapy for him. He will followup with us in about 2 weeks. #[id number] [facility]
[2017-02-12] MEDS: ENOXAPARIN SODIUM 30 MG/0.3 ML SYG SUBCU SCH (09:22)
[2017-02-12] MEDS ORDERED: WARFARIN SODIUM 3 MG TAB PO ONE (09:22)
[2017-02-12] MEDS ORDERED: WARFARIN SODIUM 3 MG TAB ONE (10:24)
[2017-02-12] MEDS: WARFARIN SODIUM 5 MG TAB PO SCH (10:25)
--- NOTE | 2017-02-12 10:31 | PN ---
DATE: 02-11-17 SUBJECTIVE: The patient is currently on Swing Bed rehabilitation and is tolerating it fairly well but he has had some increased pain and swelling in his right knee for the last 2 days. This will be discussed with Dr. Donohue. He has had chronic atrial fibrillation and is currently undergoing coumadinization so that anticoagulation therapy can be continued after discharge. Physical therapy continues with their rehabilitation program. OBJECTIVE: Afebrile. Pulse 73, blood pressure 112/72, pulse oximetry 97% on room air. No recent laboratory studies. Lungs are clear. Heart tones are regular. The patient is alert and oriented. abdomen is somewhat obese yet soft. Still requiring specialized treatment as patient is continuing to work on his rehabilitation, especially as it relates to stair climbing since he has a tall run of stairs in order to get to his home in [place]. ProTime is scheduled for tomorrow to more fully evaluate the degree of coumadinization. ASSESSMENT: 1. Postoperative day #8 right total knee arthroplasty. 2. Chronic osteoarthritis failing outpatient therapy and requiring surgical intervention to assist with symptom control.. 3. Chronic atrial fibrillation with coumadinization in process. 4. History of gout. 5. History of hypothyroidism on supplementation. PLAN: Await ProTime in the morning and when therapeutic will be able to consider being able to send home when physical therapy and rehabilitation has allowed him to reach his maximum potential so that he will safely be able to return home and climb steps to get into his home. Reevaluation in the morning. #[id number] [facility]
--- NOTE | 2017-02-12 11:45 | DS ---
DISCHARGE DIAGNOSIS: 1. Postoperative day #9 right total knee arthroplasty performed by Dr. Donohue, orthopedic surgeon. 2. Chronic osteoarthritis having failed outpatient therapy and requiring surgical intervention to assist with symptom control. 3. Chronic atrial fibrillation, on Coumadin and requiring adjustments of dosings with prothrombin time determination and requiring further outpatient management, decisions to be made by Dr. Fraire. 4. History of recurring gout. 5. History of hypothyroidism on supplementation. HISTORY OF PRESENT ILLNESS: This 71-year-old, white male was admitted to the hospital for elective orthopedic surgery performed on 02/03/[address] Jorge Donohue, surgeon. He tolerated the procedure quite well and was entered into a rehabilitation after surgery and required continued rehabilitation on Swing Bed rehab status in order to allow him to functionally improve to the point where he will be safe to return home. Special attention was noted because of the multiple steps to enter his home and required specialized training and preparation to assist with competency and confidence in walking with avoiding fall and reducing risk. His rehab continued to the point that he was safe to be able to return home on the day of discharge. LABORATORY: Postoperative hemoglobin was 12.9. INR was followed and increased from 1.13 up to 1.63 with 5 mg of Coumadin a day. An extra 3 mg of Coumadin was given on the day of discharge and he will continue on his Coumadin 5 mg daily with close followup with Dr. Fraire the first of next week. Chemistries showed potassium up to 3.9, BUN 19, creatinine 0.84. Glucose 95, calcium 8.9. No cultures were noted. No specific x-rays during the Swing Bed stay. HOSPITAL COURSE: The patient was feeling improved and was very much willing to continue with outpatient rehab as of the day of discharge. PLAN: Discharge home with close followup with Dr. Jorge Donohue on 02/26/17 at 9: 30 AM. He is to see Dr. Bebo Fraire next 02/17/17 at a time to be determined with a protime to be drawn at that time so that further information and input regarding his Coumadin dosings can be made. Continued followup in the outpatient department is important. He will continue with rehabilitation at the [place] physical therapy service beginning tomorrow, Thursday. Special attention to avoid falls. Stay active. Breathing deeply. Return if not improving. See home medications and close followup with his primary care physician and orthopedic service. #[id number] [facility]
[2017-02-12 14:36] VITALS: BP 141/68; TEMP 97.9; O2SAT 95
== END 2017-02-12 11:55 | disposition home or self-care (01) | DRG 561 ==
LOC: MS 13:20 → UNDOADMIN 13:20 → MS 02-10 08:48
PROVIDERS: ADMIT Nurse Practitioner Family; ATTEND Emergency Medicine
DX: Z47.1 Aftercare following joint replacement surgery (principal); I48.2 Chronic atrial fibrillation; E03.9 Hypothyroidism, unspecified; M54.5 Low back pain; M10.9 Gout, unspecified; Z96.651 Presence of right artificial knee joint; Z79.01 Long term (current) use of anticoagulants; Z79.899 Other long term (current) drug therapy

== ENCOUNTER → 2017-05-11 | Outpatient (CLI) | payer MEDICARE, OTHER | END | disposition home or self-care (01) | LOC: GMAH 10:57 | PROVIDERS: ATTEND Family Medicine | DX: Z12.5 Encounter for screening for malignant neoplasm of prostate (principal); I48.91 Unspecified atrial fibrillation | CPT/HCPCS: 84443; 84550; G0103 ==

== ENCOUNTER → 2017-07-17 | Outpatient (CLI) | payer OTHER ==
--- NOTE | 2017-07-17 17:29 | RAD ---
EXAM DESCRIPTION: Pelvis CLINICAL HISTORY: 71 years Male, RIGHT HIP PAIN COMPARISON: Previous study January 05, 2017 TECHNIQUE: Single x-ray view of the mid and lower pelvis and both hips FINDINGS: No pelvic fracture is seen. The iliac wings are incompletely included on the film. Degenerative changes are seen in the lower L-spine. No hip fracture or dislocation. Degenerative spurring is seen at the right femoral head neck junction. Compared to previous study, no change is evident. IMPRESSION: No identified fracture. Electronically signed by: Andrea Wagner MD 07/17/2017 5:26 PM CDT
--- NOTE | 2017-07-17 17:31 | RAD ---
EXAM DESCRIPTION: Knee,Right Complete CLINICAL HISTORY: 71 years, Male, RIGHT KNEE PAIN COMPARISON: Previous study February 03, 2017 TECHNIQUE: 4 views of the right knee FINDINGS: No fracture or dislocation. Bones appear intact around the components of the total right knee arthroplasty. Dense soft tissues may indicate deep soft tissue edema. No change in orientation of the prosthetic components compared to previous. Lateral view shows normal position of the patella. There is moderate patellar spurring and enthesopathy. Moderate suprapatellar knee joint effusion is present. Edema obscures the contours of quadriceps and patellar tendons. No abnormal patellar tilt or subluxation on patellar sunrise view. IMPRESSION: Negative for fracture or malalignment. See above. Electronically signed by: Andrea Wagner MD 07/17/2017 5:29 PM CDT
== END ==
LOC: RAD 07:25
PROVIDERS: ATTEND Orthopaedic Surgery
DX: M25.561 Pain in right knee (principal); M25.551 Pain in right hip

== ENCOUNTER → 2017-11-17 | Outpatient (CLI) | payer OTHER | LOC: GMAH 16:45 | PROVIDERS: ATTEND Family Medicine | DX: M79.609 Pain in unspecified limb (principal) ==

== ENCOUNTER → 2018-06-07 | Outpatient (CLI) | payer OTHER | LOC: GMAH 16:22 | PROVIDERS: ATTEND Family Medicine | DX: E03.9 Hypothyroidism, unspecified (principal) ==

== ENCOUNTER → 2019-04-12 | Outpatient (CLI) | payer OTHER | LOC: GMA MATASK 10:39 | PROVIDERS: ATTEND Family Medicine | DX: E03.9 Hypothyroidism, unspecified (principal) ==

== ENCOUNTER → 2020-01-16 | Outpatient (CLI) | payer OTHER | LOC: GMA MATASK 11:10 | PROVIDERS: ATTEND Family Medicine | DX: E78.2 Mixed hyperlipidemia (principal); Z12.5 Encounter for screening for malignant neoplasm of prostate; E03.9 Hypothyroidism, unspecified; Z79.01 Long term (current) use of anticoagulants | CPT/HCPCS: 84443; 84550; G0103 ==